=== PATIENT | female | born 1960 | race Caucasian/White ===

== ENCOUNTER 2017-03-14 08:48 | Emergency (ER) | payer OTHER ==
[2017-03-14 09:04] VITALS: BP 185/109
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
[2017-03-14] MEDS ORDERED: Ciprofloxacin 0.3% Ophth Soln 2.5 ML Bottle EYERT ONE (09:45)
== END 2017-03-14 10:04 | disposition home or self-care (01) ==
LOC: JD.ED 08:48
DX: T26.11XA Burn of cornea and conjunctival sac, right eye, initial encounter (principal); M19.90 Unspecified osteoarthritis, unspecified site; Z79.82 Long term (current) use of aspirin; Z79.899 Other long term (current) drug therapy; Z88.5 Allergy status to narcotic agent; X16.XXXA Contact with hot heating appliances, radiators and pipes, initial encounter
CPT/HCPCS: 99283; A9270

== ENCOUNTER 2017-03-28 14:06 | Emergency (ER) | payer OTHER ==
[2017-03-28 14:19] VITALS: BP 137/91
--- NOTE | 2017-03-28 14:23 | EDM.PDOC ---
ED HPI GENERAL MEDICAL PROBLEM - General Chief Complaint: Cardiovascular Problem Stated Complaint: HEART ISSUES- SENT BY [facility] Time Seen by Provider: 03/28/17 14:21 - History of Present Illness INITIAL COMMENTS - FREE TEXT/NARRATIVE: 56-year-old female presents emergency room sent here from the [facility] with heart concerns. Patient has a history of tachycardia problems date back some years. She had a cardioversion in 2011 heart ablation for what she thinks was SVT in 2012 prior to this she thinks she had one episode of atrial fibrillation. After the ablation she was seen with a tachycardia here one time. She developed a tachycardia Friday night after not feeling too well and was seen in the clinic on Friday where she was found to be in atrial fibrillation and started on metoprolol long-acting 50 mg a day and Zarontin. She was seen in the clinic today for follow-up and the practitioner was concerned about the patient having increased pulse shortness of breath and feeling clammy from getting up and moving around in wet normally would not be considered exertional activity. Upon arrival here the patient gives a history as stated above what is most concerning is any sort of activity causes her pulse to go up and she gets significant shortness of breath with this she does not get chest pain. She has not had any nausea or vomiting associated with this but has had some shortness of breath. 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: Reports: Other (see below) Other 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: seen by [facility] - Related Data Allergies Allergy/AdvReac Type Severity Reaction Status Date / Time codeine Allergy Vomiting Verified 03/28/17 14:19 Home Meds: Home Meds Aspirin [Halfprin] 81 mg PO DAILY 05/25/15 [History] Furosemide [Lasix] 20 mg PO DAILY 05/25/15 [History] Venlafaxine [Effexor XR] 150 mg PO DAILY 05/25/15 [History] Metoprolol Succinate 50 mg PO DAILY 03/28/17 [History] Rivaroxaban [Xarelto] 20 mg PO DAILY 03/28/17 [History] Past Medical History Other Cardiovascular History: tachycardia 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 Denies: Fever, Chills HEENT: Reports: No Symptoms Respiratory: Reports: Shortness of Breath (With activity) Cardiovascular: Reports: Dyspnea on Exertion, Lightheadedness, Palpitations. Denies: Chest Pain, Syncope GI/Abdominal: Reports: No Symptoms : Reports: No Symptoms Neurological: Reports: Dizziness. Denies: Confusion, Headache, Numbness Psychiatric: Reports: No Symptoms ED EXAM, GENERAL - Physical Exam Exam: See Below Exam Limited By: No Limitations General Appearance: Alert, No Apparent Distress Head: Atraumatic, Normocephalic Neck: Normal Inspection, Supple. No: Lymphadenopathy (L), Lymphadenopathy (R) Respiratory/Chest: No Respiratory Distress, Lungs Clear Cardiovascular: No Edema, No Murmur, Irregularly Irregular GI/Abdominal: Normal Bowel Sounds, Soft, Non-Tender Back Exam: Normal Inspection. No: CVA Tenderness (L), CVA Tenderness (R) Extremities: Normal Inspection, No Pedal Edema Neurological: Alert, Oriented, Normal Cognition Course - Vital Signs Last Recorded V/S: Last Vital Signs Temp 35.5 C 03/28/17 14:11 Pulse 110 H 03/28/17 14:11 Resp 18 03/28/17 14:11 BP 137/91 H 03/28/17 14:11 Pulse Ox 98 03/28/17 14:11 - Orders/Labs/Meds Orders: Active Orders 24 hr Category Date Time Status EKG 12 Lead [EKG Documentation Completion] [RC] STAT Care 03/28/17 14:28 Active Chest 1V Frontal [CR] Stat Exams 03/28/17 15:11 Taken Labs: Laboratory Tests 03/28/17 03/28/17 03/28/17 Range/Units 14:20 14:20 14:20 WBC 9.91 (3.98-10.04) K/mm3 RBC 4.73 (3.98-5.22) M/mm3 Hgb 14.9 (11.2-15.7) gm/L Hct 43.2 (34.1-44.9) % MCV 91.3 (79.4-94.8) fl MCH 31.5 (25.6-32.2) pg MCHC 34.5 (32.2-35.5) g/dl RDW Std Deviation 43.2 (36.4-46.3) fL Plt Count 284 (182-369) K/mm3 MPV 11.0 (9.4-12.3) fl Neutrophils % (Manual) 48 (40-60) % Band Neutrophils % 1 (0-10) % Lymphocytes % (Manual) 49 H (20-40) % Atypical Lymphs % 0 % Monocytes % (Manual) 2 (2-10) % Eosinophils % (Manual) 0 L (0.7-5.8) % Basophils % (Manual) 0 L (0.1-1.2) Platelet Estimate Adequate RBC Morph Comment Normal PT 11.3 (8.0-13.0) SECONDS INR 1.03 APTT 28 (22-36) SECONDS Sodium 140 (136-145) mEq/L Potassium 3.7 (3.5-5.1) mEq/L Chloride 102 (98-107) mEq/L Carbon Dioxide 25 (21-32) mEq/L Anion Gap 16.7 H (5-15) BUN 28 H (7-18) mg/dL Creatinine 1.1 H (0.55-1.02) mg/dL Est Cr Clr Drug Dosing TNP Estimated GFR (MDRD) 51 (>60) mL/min BUN/Creatinine Ratio 25.5 H (14-18) Glucose 113 H (74-106) mg/dL Calcium 9.7 (8.5-10.1) mg/dL Magnesium 2.0 (1.8-2.4) mg/dl Total Bilirubin 0.5 (0.2-1.0) mg/dL AST 28 (15-37) U/L ALT 38 (14-59) U/L Alkaline Phosphatase 70 (46-116) U/L Troponin I 0.325 H* (0.00-0.056) ng/mL B-Natriuretic Peptide (0-100) pg/mL Total Protein 7.7 (6.4-8.2) g/dl Albumin 4.7 (3.4-5.0) g/dl Globulin 3.0 gm/dL Albumin/Globulin Ratio 1.6 (1-2) TSH 3rd Generation 2.191 (0.358-3.74) uIU/mL 03/28/17 Range/Units 14:20 WBC (3.98-10.04) K/mm3 RBC (3.98-5.22) M/mm3 Hgb (11.2-15.7) gm/L Hct (34.1-44.9) % MCV (79.4-94.8) fl MCH (25.6-32.2) pg MCHC (32.2-35.5) g/dl RDW Std Deviation (36.4-46.3) fL Plt Count (182-369) K/mm3 MPV (9.4-12.3) fl Neutrophils % (Manual) (40-60) % Band Neutrophils % (0-10) % Lymphocytes % (Manual) (20-40) % Atypical Lymphs % % Monocytes % (Manual) (2-10) % Eosinophils % (Manual) (0.7-5.8) % Basophils % (Manual) (0.1-1.2) Platelet Estimate RBC Morph Comment PT (8.0-13.0) SECONDS INR APTT (22-36) SECONDS Sodium (136-145) mEq/L Potassium (3.5-5.1) mEq/L Chloride (98-107) mEq/L Carbon Dioxide (21-32) mEq/L Anion Gap (5-15) BUN (7-18) mg/dL Creatinine (0.55-1.02) mg/dL Est Cr Clr Drug Dosing Estimated GFR (MDRD) (>60) mL/min BUN/Creatinine Ratio (14-18) Glucose (74-106) mg/dL Calcium (8.5-10.1) mg/dL Magnesium (1.8-2.4) mg/dl Total Bilirubin (0.2-1.0) mg/dL AST (15-37) U/L ALT (14-59) U/L Alkaline Phosphatase (46-116) U/L Troponin I (0.00-0.056) ng/mL B-Natriuretic Peptide 266 H (0-100) pg/mL Total Protein (6.4-8.2) g/dl Albumin (3.4-5.0) g/dl Globulin gm/dL Albumin/Globulin Ratio (1-2) TSH 3rd Generation (0.358-3.74) uIU/mL Meds: Medications Discontinued Medications Generic Name Dose Route Start Last Admin Trade Name Dwain PRN Reason Stop Dose Admin Aspirin 324 mg 03/28/17 17:16 03/28/17 17:19 Aspirin PO 03/28/17 17:17 324 mg ONETIME ONE Administration Aspirin Confirm 03/28/17 17:20 03/28/17 17:21 Aspirin Administered 03/28/17 17:21 Not Given Dose 324 mg .ROUTE .STK-MED ONE - Re-Assessments/Exams Free Text/Narrative Re-Assessment/Exam: 03/28/17 16:46 Lab called us with a critical troponin of 0.325 remaining labs were not reported out I just got off the phone with them and the reported them case reviewed with Dr. Cook who recommends sending the patient to [place]. 03/28/17 17:[address] Arroyo business planning director at [facility] in [place] who shares my concerns with this patient the patient will be admitted to who we discussed the patient with and is the on-call hospitalist at [facility]. Dr. Arroyo was able to find EKG done on the patient on Friday where she had some nonspecific ST depression as well. At this point no medication adjustments. We discussed her laboratory results her possible cardiomegaly on the portable chest x-ray. 03/28/17 18:18 Departure - Departure Time of Disposition: 17:23 Disposition: DC/Tfer to Acute Hospital 02 Reason for Transfer *Q: Other Clinical Impression: Elevated troponin, Atrial fibrillation Referrals: Alaina Stephens, DISPLAY COORDINATOR [Primary Care Provider] - Forms: ED Department Discharge - My Orders Last 24 Hours: My Active Orders 03/28/17 14:28 EKG 12 Lead [EKG Documentation Completion] [RC] STAT 03/28/17 15:11 Chest 1V Frontal [CR] Stat - Assessment/Plan Last 24 Hours: My Active Orders 03/28/17 14:28 EKG 12 Lead [EKG Documentation Completion] [RC] STAT 03/28/17 15:11 Chest 1V Frontal [CR] Stat
[2017-03-28] MEDS ORDERED: Aspirin 81 MG Tab.Chew PO ONE (17:16)
[2017-03-28] MEDS ORDERED: Aspirin 81 MG Tab.Chew ONE (17:20)
--- NOTE | 2017-03-30 08:32 | CR ---
Chest: Portable view of the chest was obtained. Comparison: No previous chest x-ray. Heart is slightly enlarged but accentuated from portable technique. Upper mediastinum is within normal limits for portable technique. Lungs are clear. No acute pulmonary vascular congestion is seen. Bony structures are grossly intact. Surgical clips are noted from prior cholecystectomy. Impression: 1. Mildly prominent heart most likely due to accentuation from portable technique. 2. Nothing acute is identified on portable chest x-ray. Diagnostic code #1
== END 2017-03-28 18:04 ==
LOC: JD.ED 14:06
DX: I48.91 Unspecified atrial fibrillation (principal); R79.89 Other specified abnormal findings of blood chemistry; Z88.5 Allergy status to narcotic agent; Z79.82 Long term (current) use of aspirin; Z79.899 Other long term (current) drug therapy; Z98.890 Other specified postprocedural states; M19.90 Unspecified osteoarthritis, unspecified site
CPT/HCPCS: 36415; 71010; 80053; 83735; 83880; 84443; 84484; 85025; 85610; 85730; 93005; 99285; A9270; 99284

== ENCOUNTER 2017-04-24 08:35 | Emergency (ER) | payer OTHER ==
[2017-04-24 08:49] VITALS: BP 148/81
[2017-04-24] MEDS ORDERED: Sodium Chloride 0.9% 10 ML Syringe FLUSH PRN (08:52)
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
--- NOTE | 2017-04-24 10:45 | CR ---
Chest: Frontal view of the chest was obtained. Comparison: Previous chest x-ray of 03/28/17. Heart size is slightly enlarged. Upper mediastinum is normal. Lungs are clear. Bony structures are grossly intact. Impression: 1. Nothing acute is appreciated on frontal chest x-ray. Diagnostic code #2
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
[2017-04-24] MEDS ORDERED: Propofol 200 MG/20 ML SDV ONE (12:47)
[2017-04-24] MEDS ORDERED: Midazolam 1 MG/ML 2 ML SDV ONE (12:47)
[2017-04-24] MEDS ORDERED: Lidocaine 1% 4 ML ONE (12:48)
== END 2017-04-24 14:10 | disposition home or self-care (01) ==
LOC: JD.ED 08:35
DX: I48.0 Paroxysmal atrial fibrillation (principal); Z88.5 Allergy status to narcotic agent; Z79.01 Long term (current) use of anticoagulants; Z79.899 Other long term (current) drug therapy
CPT/HCPCS: 36415; 71010; 80053; 84484; 85025; 85610; 92960; 93005; 99285; J2250; J7050; 00410; J2704

== ENCOUNTER 2019-06-02 11:13 | Emergency (ER) | payer OTHER ==
[2019-06-02 11:22] VITALS: BP 139/83; PULSE 82
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
--- NOTE | 2019-06-02 13:22 | US ---
Right groin ultrasound: Multiple real-time images of the right groin were obtained. There appears to be blood extending into a hypoechoic area within the right groin. Findings are suspicious for pseudoaneurysm measuring 6.6 x 3.2 x 5.3 cm. Impression: 1. Findings highly suspicious for pseudoaneurysm within the right groin. Diagnostic code #5
== END 2019-06-02 14:20 | disposition home or self-care (01) ==
LOC: JD.ED 11:13
DX: I97.630 Postprocedural hematoma of a circulatory system organ or structure following a cardiac catheterization (principal); T81.718A Complication of other artery following a procedure, not elsewhere classified, initial encounter; I72.4 Aneurysm of artery of lower extremity; I48.91 Unspecified atrial fibrillation; E78.00 Pure hypercholesterolemia, unspecified; E66.9 Obesity, unspecified; Z68.34 Body mass index [BMI] 34.0-34.9, adult; Z79.01 Long term (current) use of anticoagulants; Z79.899 Other long term (current) drug therapy; Y84.0 Cardiac catheterization as the cause of abnormal reaction of the patient, or of later complication, without mention of misadventure at the time of the procedure
CPT/HCPCS: 36415; 80053; 85025; 85610; 85730; 93925; 93925-26; 99282; 99284-25